=== PATIENT | female | born 1990 | race Caucasian/White ===

== ENCOUNTER 2017-07-13 16:05 | Emergency (ER) | payer OTHER ==
[~2017-07-13] VITALS: Ht 172.7 cm; Wt 64.9 kg
[~2017-07-13 16:05] MED LIST: BENADRYL25 MG PO; CLEOCIN HCL150 M1 PO; NEOMYC-POLYM-DEX5 ML OP; NOHOMEMEDICATIONS; NORCO 5-325 TA1 EAC1 PO; NORCO 5-325 TA1 EACH PO; PENICILLIN VK500 MG PO; PEPCID40 MG PO; PREDNISONE50 MG PO
[2017-07-13] MEDS ORDERED: TRAMADOL 50 MG50 MG PO (17:33)
[2017-07-13] MEDS ORDERED: ROBAXIN 750 MG750 M1 PO (17:37)
[2017-07-13 17:43] VITALS: BP 160/78
== END 2017-07-13 17:45 | disposition home or self-care (01) ==
LOC: M.ERS 16:05
DX: M54.9 Dorsalgia, unspecified (principal); F17.210 Nicotine dependence, cigarettes, uncomplicated; Z98.890 Other specified postprocedural states; V49.49XA Driver injured in collision with other motor vehicles in traffic accident, initial encounter; Y93.89 Activity, other specified; Y92.89 Other specified places as the place of occurrence of the external cause; Y99.8 Other external cause status